=== PATIENT | female | born 1970 | race Caucasian/White ===

== ENCOUNTER → 2025-06-28 | Day surgery (SDC) | payer BC ==
[2025-06-26 10:46] LABS: BASOPHILS % 0.8 % (0.0-1.0); EOSINOPHILS % 8.5 % (0.0-6.0); LYMPHOCYTES % 25.7 % (18.0-39.1); MONOCYTES % 7.1 % (4.4-11.3); NEUTROPHILS % 57.7 % (38.7-80.0); RED CELL DISTRIBUTION WIDTH 13.6 % (11.7-14.4)
[2025-06-26 11:17] LABS: EST GLOMERULAR FILTRATION RATE 67.0 ML/MIN (>=60)
[~2025-06-28] MED LIST: ACETAMINOPHEN-1 EAC3 PO; ADVIL PM CAPLE1 EACH PO; BENADRYL25 M1 PO; DEXAMETHASONE SOD PHOS INJ 4 MG/ML SDV ONE; DULCOLAX10 MG PR; HYDROCODON-ACE1 EAC9 PO; KETOROLAC TROMETHAMINE 30 MG/ML VIAL ONE; LIDOCAINE HCL 2% LOCAL INJ 5 ML SDV VIAL INJ ONE; ONDANSETRON HCL INJ 2MG/ML 2ML 2 MG/ML VIAL ONE; PEPCID AC10 MG PO; PROPOFOL IV EMULSION 10 MG/ML 20 ML VIAL ONE; VESICARE5 MG PO
[2025-06-28] MEDS: SODIUM CHLORIDE 0.9% 1000ML 1,000 ML ONE (13:20)
[2025-06-28] MEDS: CEFTRIAXONE 1 GM VIAL ONE (13:20)
[2025-06-28] MEDS: GENTAMICIN 80MG/NS 100 ML 200 ML IV ONE (13:21)
[2025-06-28 15:04] VITALS: TEMP 97.8
[2025-06-28] MEDS: PHENAZOPYRIDINE HCL 100 MG TAB ONE (15:20)
[2025-06-28 15:50] VITALS: BP 163/87; PULSE 74; RESP 18; O2SAT 99
== END | disposition home or self-care (01) ==
LOC: OR 12:07
PROVIDERS: ATTEND Urology
DX: N20.0 Calculus of kidney (principal); Z46.6 Encounter for fitting and adjustment of urinary device; N81.10 Cystocele, unspecified; N36.41 Hypermobility of urethra; N81.6 Rectocele; N95.2 Postmenopausal atrophic vaginitis; N28.89 Other specified disorders of kidney and ureter; I10 Essential (primary) hypertension; J45.909 Unspecified asthma, uncomplicated; E03.9 Hypothyroidism, unspecified; K21.9 Gastro-esophageal reflux disease without esophagitis; Z79.1 Long term (current) use of non-steroidal anti-inflammatories (NSAID); Z85.820 Personal history of malignant melanoma of skin
CPT/HCPCS: 36415; 52352; 74018; 74420; 80048; 84550; 85025; 87086; 88300; 93005; C1758; C1769; J0696; J1100; J1580; J2003; J2405; J2704; J7030; J1885